=== PATIENT | female | born 1950 | race Caucasian/White ===

== ENCOUNTER 2018-11-15 08:27 | Observation (INO) | payer OTHER, MEDICARE ==
[2018-11-15 09:21] LABS: ADD MAN DIFF? NO
[2018-11-15 09:22] LABS: WHITE BLOOD COUNT 8.8 10^3/ul (4.8-10.8)
[2018-11-15 09:22] LABS: BASOPHILS % 0.5 % (0.0-2.0); EOSINOPHILS # 0.1 10^3/ul (0.0-0.5); EOSINOPHILS % 0.9 % (0.0-7.0); HEMATOCRIT 46.7 % (37.0-47.0); HEMOGLOBIN 14.4 g/dl (12.0-16.0); LYMPHOCYTES # 1.2 10^3/ul (0.8-2.9); LYMPHOCYTES % 13.6 % (15.0-51.0); MEAN CORPUSCULAR HGB CONC 30.8 g/dl (32.0-37.0); MEAN PLATELET VOLUME 8.9 fl (7.4-10.4); MONOCYTE # 0.6 10^3/ul (0.3-0.9); MONOCYTES % 7.2 % (0.0-11.0); NEUTROPHIL # 6.8 10^3/ul (1.6-7.5); NEUTROPHILS % 77.5 % (39.0-77.0); PLATELET COUNT 239 10^3/UL (140-415); RED BLOOD COUNT 5.99 10^6/ul (4.20-5.40); RED CELL DISTRIBUTION WIDTH 15.8 % (11.5-14.5)
[2018-11-15] MEDS: morphine 4 MG/ML VIAL IV (09:32)
[2018-11-15] MEDS: ONDANSETRON 4 MG INJ IV (09:33)
[2018-11-15] MEDS: ASPIRIN 81 MG TAB PO (09:33)
[2018-11-15 09:42] LABS: INR 0.94; PARTIAL THROMBOPLASTIN TIME 28.7 Sec (23.0-35.0); PROTIME 12.7 Sec (11.9-14.9)
[2018-11-15 09:44] LABS: ANION GAP 6 (5-13); BLOOD UREA NITROGEN 19 mg/dl (7-20); CALCIUM 9.2 mg/dl (8.4-10.2); CARBON DIOXIDE 29 mmol/L (21-31); CHLORIDE 105 mmol/L (97-110); CREATININE 0.67 mg/dl (0.44-1.00); Estimated GFR > 60 mL/min (>60); GLUCOSE 136 mg/dl (70-220); POTASSIUM 3.9 mmol/L (3.5-5.1); SODIUM 140 mmol/L (135-144)
[2018-11-15] MEDS: LORAZEPAM 2 MG INJ IV (09:55)
[2018-11-15 09:56] LABS: TROPONIN-I < 0.012 ng/ml (0.000-0.120)
[2018-11-15] MEDS: HYDROmorphONE 2 MG/ML SYG IV (10:31)
[2018-11-15 10:55] LABS: ALANINE AMINOTRANSFERASE 21 IU/L (13-69); ALBUMIN 3.9 g/dl (3.3-4.9); ALKALINE PHOSPHATASE 128 IU/L (42-121); ASPARTATE AMINO TRANSFERASE 22 IU/L (15-46); BILIRUBIN,INDIRECT 0.4 mg/dl (0-1.1); BILIRUBIN,TOTAL 0.4 mg/dl (0.2-1.3); LIPASE 67 U/L (23-300); TOTAL PROTEIN 7.5 g/dl (6.1-8.1)
[2018-11-15] MEDS ORDERED: ONDANSETRON 4 MG INJ IV ×2 (11:00→12:00)
[2018-11-15] MEDS ORDERED: ACETAMINOPHEN 325 MG TAB PO (11:00)
[2018-11-15] MEDS ORDERED: NACL 0.9% 3 ML SYG IV (12:00)
[2018-11-15] MEDS ORDERED: ENOXAPARIN 40 MG/0.4 ML SYG SC (12:00)
[2018-11-15] MEDS ORDERED: DOCUSATE SODIUM 100 MG CAP PO (12:00)
[2018-11-15 12:45] LABS: CREATINE KINASE 47 IU/L (23-200)
[2018-11-15 12:59] LABS: CK INDEX 1.4; CK-MB 0.67 ng/ml (0.0-2.4); TROPONIN-I < 0.012 ng/ml (0.000-0.120)
[2018-11-15] MEDS: ALBUTEROL HFA 8 GM INHALER INH ×2 (13:00→17:00)
[2018-11-15 13:13] LABS: B-TYPE NATRIURETIC PEPTIDE 1140 PG/ML (0-125)
[2018-11-15] MEDS: MELOXICAM 15 MG TAB PO (14:02)
[2018-11-15] MEDS: METOPROLOL (XL) 50 MG TAB PO (14:02)
[2018-11-15] MEDS: PANTOPRAZOLE (EC) 40 MG TAB PO (14:02)
[2018-11-15] MEDS: FUROSEMIDE 20 MG INJ IV (14:03)
[2018-11-15] MEDS: RIVAROXABAN 20 MG TABLET PO (18:19)
[2018-11-15 18:23] LABS: CREATINE KINASE 44 IU/L (23-200)
[2018-11-15 18:36] LABS: CK-MB 0.88 ng/ml (0.0-2.4); TROPONIN-I < 0.012 ng/ml (0.000-0.120)
[2018-11-15] MEDS: MONTELUKAST 10 MG TAB PO (21:32)
[2018-11-16] MEDS: ALBUTEROL HFA 8 GM INHALER INH ×7 (01:00→21:36)
[2018-11-16] MEDS: ACETAMINOPHEN 325 MG TAB PO (04:11)
[2018-11-16] MEDS: FUROSEMIDE 40 MG TAB PO (05:28)
[2018-11-16] MEDS: PANTOPRAZOLE (EC) 40 MG TAB PO (05:31)
[2018-11-16 07:11] LABS: HEMOGLOBIN A1C 6.4 % (0-5.9)
[2018-11-16] MEDS: MELOXICAM 15 MG TAB PO (08:08)
[2018-11-16] MEDS: METOPROLOL (XL) 50 MG TAB PO (08:08)
[2018-11-16] MEDS ORDERED: FUROSEMIDE 20 MG TAB PO (09:00)
[2018-11-16] MEDS: FUROSEMIDE 40 MG INJ IV (13:36)
[2018-11-16] MEDS: RIVAROXABAN 20 MG TABLET PO (17:07)
[2018-11-16] MEDS: MONTELUKAST 10 MG TAB PO (21:37)
[2018-11-17] MEDS: ALBUTEROL HFA 8 GM INHALER INH ×4 (01:04→14:05)
[2018-11-17] MEDS: FUROSEMIDE 40 MG TAB PO (05:49)
[2018-11-17] MEDS: PANTOPRAZOLE (EC) 40 MG TAB PO (05:49)
[2018-11-17 06:20] LABS: ADD MAN DIFF? NO
[2018-11-17 06:23] LABS: WHITE BLOOD COUNT 7.5 10^3/ul (4.8-10.8)
[2018-11-17 06:23] LABS: BASOPHILS % 0.4 % (0.0-2.0); EOSINOPHILS # 0.1 10^3/ul (0.0-0.5); EOSINOPHILS % 1.7 % (0.0-7.0); HEMATOCRIT 48.2 % (37.0-47.0); HEMOGLOBIN 14.5 g/dl (12.0-16.0); LYMPHOCYTES # 1.3 10^3/ul (0.8-2.9); LYMPHOCYTES % 17.6 % (15.0-51.0); MEAN CORPUSCULAR HEMOGLOBIN 23.9 pg (29.0-33.0); MEAN CORPUSCULAR HGB CONC 30.1 g/dl (32.0-37.0); MEAN CORPUSCULAR VOLUME 79.4 fl (82.0-101.0); MEAN PLATELET VOLUME 8.9 fl (7.4-10.4); MONOCYTE # 0.8 10^3/ul (0.3-0.9); MONOCYTES % 10.1 % (0.0-11.0); NEUTROPHIL # 5.2 10^3/ul (1.6-7.5); NEUTROPHILS % 69.9 % (39.0-77.0); PLATELET COUNT 229 10^3/UL (140-415); RED BLOOD COUNT 6.07 10^6/ul (4.20-5.40); RED CELL DISTRIBUTION WIDTH 16.1 % (11.5-14.5)
[2018-11-17 07:03] LABS: B-TYPE NATRIURETIC PEPTIDE 582 PG/ML (0-125)
[2018-11-17 07:07] LABS: MAGNESIUM 1.7 mg/dl (1.7-2.5)
[2018-11-17 07:14] LABS: ANION GAP 10 (5-13); BLOOD UREA NITROGEN 27 mg/dl (7-20); CALCIUM 8.9 mg/dl (8.4-10.2); CARBON DIOXIDE 29 mmol/L (21-31); CHLORIDE 100 mmol/L (97-110); CREATININE 0.71 mg/dl (0.44-1.00); Estimated GFR > 60 mL/min (>60); GLUCOSE 119 mg/dl (70-220); POTASSIUM 3.5 mmol/L (3.5-5.1); SODIUM 139 mmol/L (135-144)
[2018-11-17] MEDS: MELOXICAM 15 MG TAB PO (08:06)
[2018-11-17] MEDS: METOPROLOL (XL) 50 MG TAB PO (08:07)
[2018-11-17] MEDS ORDERED: METOPROLOL 25 MG TAB PO (21:00)
== END 2018-11-17 15:35 | disposition home or self-care (01) ==
LOC: E/R 08:27 → 6WM 10:43
DX: I48.2 Chronic atrial fibrillation (principal); I50.9 Heart failure, unspecified; I27.20 Pulmonary hypertension, unspecified; E66.01 Morbid (severe) obesity due to excess calories; R07.9 Chest pain, unspecified; Z68.43 Body mass index [BMI] 50.0-59.9, adult
CPT/HCPCS: 36415; 71045; 71046; 80048; 80076; 82550; 82553; 83036; 83690; 83735; 83880; 84484; 85025; 85610; 85730; 90686; 93005; 93306; 96374; 96375; 96376; 97161; 99285-25; G0378

== ENCOUNTER 2018-11-21 17:07 | Emergency (ER) | payer OTHER ==
[2018-11-21] MEDS ORDERED: ENALAPRILAT 1.25 MG INJ IV (21:00)
[2018-11-21 21:20] LABS: ADD MAN DIFF? NO
[2018-11-21 21:23] LABS: BASOPHILS % 0.3 % (0.0-2.0); EOSINOPHILS # 0.1 10^3/ul (0.0-0.5); EOSINOPHILS % 0.9 % (0.0-7.0); HEMATOCRIT 50.9 % (37.0-47.0); HEMOGLOBIN 15.6 g/dl (12.0-16.0); LYMPHOCYTES # 1.6 10^3/ul (0.8-2.9); LYMPHOCYTES % 18.4 % (15.0-51.0); MEAN CORPUSCULAR HEMOGLOBIN 24.2 pg (29.0-33.0); MEAN CORPUSCULAR HGB CONC 30.6 g/dl (32.0-37.0); MEAN CORPUSCULAR VOLUME 78.9 fl (82.0-101.0); MEAN PLATELET VOLUME 8.9 fl (7.4-10.4); MONOCYTE # 0.7 10^3/ul (0.3-0.9); MONOCYTES % 8.2 % (0.0-11.0); NEUTROPHIL # 6.2 10^3/ul (1.6-7.5); PLATELET COUNT 256 10^3/UL (140-415); RED BLOOD COUNT 6.45 10^6/ul (4.20-5.40); RED CELL DISTRIBUTION WIDTH 17.3 % (11.5-14.5)
[2018-11-21 21:23] LABS: WHITE BLOOD COUNT 8.6 10^3/ul (4.8-10.8)
[2018-11-21 21:46] LABS: ALANINE AMINOTRANSFERASE 28 IU/L (13-69); ALBUMIN/GLOBULIN RATIO 1.08; ALKALINE PHOSPHATASE 133 IU/L (42-121); ANION GAP 6 (5-13); ASPARTATE AMINO TRANSFERASE 30 IU/L (15-46); BILIRUBIN,INDIRECT 0.2 mg/dl (0-1.1); BILIRUBIN,TOTAL 0.2 mg/dl (0.2-1.3); BLOOD UREA NITROGEN 23 mg/dl (7-20); CALCIUM 9.7 mg/dl (8.4-10.2); CARBON DIOXIDE 29 mmol/L (21-31); CHLORIDE 106 mmol/L (97-110); CREATININE 0.81 mg/dl (0.44-1.00); Estimated GFR > 60 mL/min (>60); GLUCOSE 112 mg/dl (70-220); LIPASE 102 U/L (23-300); POTASSIUM 4.3 mmol/L (3.5-5.1); SODIUM 141 mmol/L (135-144); TOTAL PROTEIN 7.7 g/dl (6.1-8.1)
[2018-11-21 21:55] LABS: B-TYPE NATRIURETIC PEPTIDE 1040 PG/ML (0-125)
[2018-11-21 21:59] LABS: TROPONIN-I < 0.012 ng/ml (0.000-0.120)
[2018-11-21] MEDS: ASPIRIN 81 MG TAB PO (22:15)
[2018-11-21] MEDS: FUROSEMIDE 40 MG INJ IV (22:15)
[2018-11-21] MEDS: ENALAPRILAT 2.5 MG INJ IV (23:04)
== END 2018-11-21 23:41 | disposition home or self-care (01) ==
LOC: E/R 23:41
DX: I10 Essential (primary) hypertension (principal); I50.31 Acute diastolic (congestive) heart failure; G44.209 Tension-type headache, unspecified, not intractable; E66.01 Morbid (severe) obesity due to excess calories; J44.9 Chronic obstructive pulmonary disease, unspecified; Z85.41 Personal history of malignant neoplasm of cervix uteri
CPT/HCPCS: 70450; 71045; 80053; 83690; 83880; 84484; 85025; 93005; 96374; 96375; 99285-25

== ENCOUNTER 2019-06-08 19:23 | Inpatient (IN) | payer OTHER ==
[2019-06-08] MEDS: NITROGLYCERIN 2% 1 GM OINT PKT TD (19:46)
[2019-06-08] MEDS: ASPIRIN 81 MG TAB PO (19:46)
[2019-06-08 19:55] LABS: ADD MAN DIFF? NO
[2019-06-08 19:58] LABS: BASOPHILS % 0.5 % (0.0-2.0); EOSINOPHILS # 0.1 10^3/ul (0.0-0.5); EOSINOPHILS % 1.1 % (0.0-7.0); HEMATOCRIT 50.9 % (37.0-47.0); HEMOGLOBIN 16.1 g/dl (12.0-16.0); LYMPHOCYTES # 1.3 10^3/ul (0.8-2.9); LYMPHOCYTES % 16.3 % (15.0-51.0); MEAN CORPUSCULAR HEMOGLOBIN 27.2 pg (29.0-33.0); MEAN CORPUSCULAR HGB CONC 31.6 g/dl (32.0-37.0); MEAN CORPUSCULAR VOLUME 85.8 fl (82.0-101.0); MONOCYTE # 0.7 10^3/ul (0.3-0.9); NEUTROPHIL # 5.8 10^3/ul (1.6-7.5); NEUTROPHILS % 72.7 % (39.0-77.0); PLATELET COUNT 208 10^3/UL (140-415); RED BLOOD COUNT 5.93 10^6/ul (4.20-5.40); RED CELL DISTRIBUTION WIDTH 15.5 % (11.5-14.5)
[2019-06-08] MEDS ORDERED: NITROGLYCERIN (SL) 0.4 MG TAB SL (20:00)
[2019-06-08 20:22] LABS: ANION GAP 9 (5-13); BLOOD UREA NITROGEN 22 mg/dl (7-20); CALCIUM 9.5 mg/dl (8.4-10.2); CARBON DIOXIDE 28 mmol/L (21-31); CHLORIDE 102 mmol/L (97-110); CREATININE 0.67 mg/dl (0.44-1.00); Estimated GFR > 60 mL/min (>60); GLUCOSE 108 mg/dl (70-220); POTASSIUM 3.6 mmol/L (3.5-5.1); SODIUM 139 mmol/L (135-144)
[2019-06-08 20:33] LABS: TROPONIN-I < 0.012 ng/ml (0.000-0.120)
[2019-06-08] MEDS ORDERED: ONDANSETRON 4 MG INJ IV ×2 (21:00→21:30)
[2019-06-08] MEDS ORDERED: ACETAMINOPHEN 325 MG TAB PO (21:00)
[2019-06-08] MEDS: LABETALOL HCL 20MG INJ IV (21:06)
[2019-06-08] MEDS ORDERED: NACL 0.9% 3 ML SYG IV (21:30)
[2019-06-08] MEDS ORDERED: NAPROXEN 500 MG TAB PO (21:30)
[2019-06-08] MEDS ORDERED: morphine 2 MG INJ IV (21:30)
[2019-06-08] MEDS: ALBUTEROL 18 GM INHALER INH (21:30)
[2019-06-08] MEDS: FUROSEMIDE 40 MG INJ IV (23:33)
[2019-06-08] MEDS: ACETAMINOPHEN 325 MG TAB PO (23:33)
[2019-06-09] MEDS: ALBUTEROL 18 GM INHALER INH ×6 (01:00→20:57)
[2019-06-09 02:04] LABS: CREATINE KINASE 39 IU/L (23-200)
[2019-06-09 02:14] LABS: CK INDEX 1.6; CK-MB 0.62 ng/ml (0.0-2.4)
[2019-06-09 02:18] LABS: TROPONIN-I < 0.012 ng/ml (0.000-0.120)
[2019-06-09] MEDS: PANTOPRAZOLE (EC) 40 MG TAB PO (06:08)
[2019-06-09] MEDS: FUROSEMIDE 40 MG INJ IV ×2 (06:12→17:44)
[2019-06-09 07:06] LABS: ADD MAN DIFF? NO
[2019-06-09 07:08] LABS: BASOPHILS % 0.5 % (0.0-2.0); EOSINOPHILS # 0.1 10^3/ul (0.0-0.5); EOSINOPHILS % 1.7 % (0.0-7.0); HEMATOCRIT 46.4 % (37.0-47.0); HEMOGLOBIN 14.5 g/dl (12.0-16.0); LYMPHOCYTES # 1.1 10^3/ul (0.8-2.9); LYMPHOCYTES % 17.3 % (15.0-51.0); MEAN CORPUSCULAR HEMOGLOBIN 27.1 pg (29.0-33.0); MEAN CORPUSCULAR HGB CONC 31.3 g/dl (32.0-37.0); MEAN CORPUSCULAR VOLUME 86.6 fl (82.0-101.0); MEAN PLATELET VOLUME 9.6 fl (7.4-10.4); MONOCYTE # 0.7 10^3/ul (0.3-0.9); MONOCYTES % 10.6 % (0.0-11.0); NEUTROPHIL # 4.4 10^3/ul (1.6-7.5); NEUTROPHILS % 69.4 % (39.0-77.0); PLATELET COUNT 189 10^3/UL (140-415); RED BLOOD COUNT 5.36 10^6/ul (4.20-5.40); RED CELL DISTRIBUTION WIDTH 15.9 % (11.5-14.5)
[2019-06-09 07:08] LABS: WHITE BLOOD COUNT 6.3 10^3/ul (4.8-10.8)
[2019-06-09 07:18] LABS: HEMOGLOBIN A1C 6.2 % (0-5.9)
[2019-06-09 07:30] LABS: ALANINE AMINOTRANSFERASE 29 IU/L (13-69); ALBUMIN/GLOBULIN RATIO 1.07; ALKALINE PHOSPHATASE 109 IU/L (42-121); ANION GAP 4 (5-13); ASPARTATE AMINO TRANSFERASE 21 IU/L (15-46); BILIRUBIN,INDIRECT 0.9 mg/dl (0-1.1); BILIRUBIN,TOTAL 0.9 mg/dl (0.2-1.3); BLOOD UREA NITROGEN 24 mg/dl (7-20); CARBON DIOXIDE 35 mmol/L (21-31); CHLORIDE 102 mmol/L (97-110); CHOL/HDL RATIO 2.7 RATIO; CHOLESTEROL 92 mg/dl (100-200); Estimated GFR > 60 mL/min (>60); GLUCOSE 112 mg/dl (70-220); HDL CHOLESTEROL 33 mg/dl (33-92); LDL CHOLESTEROL,CALCULATED 39 mg/dl; MAGNESIUM 1.6 mg/dl (1.7-2.5); PHOSPHORUS 4.4 mg/dl (2.5-4.9); POTASSIUM 3.9 mmol/L (3.5-5.1); SODIUM 141 mmol/L (135-144); TOTAL PROTEIN 5.8 g/dl (6.1-8.1); TRIGLYCERIDES 98 mg/dl (0-149)
[2019-06-09 07:31] LABS: CREATINE KINASE 36 IU/L (23-200)
[2019-06-09 07:42] LABS: CK INDEX 1.6; CK-MB 0.57 ng/ml (0.0-2.4); TROPONIN-I < 0.012 ng/ml (0.000-0.120)
[2019-06-09] MEDS: ACETAMINOPHEN 325 MG TAB PO (08:20)
[2019-06-09] MEDS: METOPROLOL 25 MG TAB PO (08:21)
[2019-06-09] MEDS ORDERED: FUROSEMIDE 20 MG TAB PO (09:00)
[2019-06-09] MEDS ORDERED: ENOXAPARIN 40 MG/0.4 ML SYG SC (09:00)
[2019-06-09] MEDS: MAGNESIUM SULFATE 2 GM/50 ML 50 ML IVPB (10:46)
[2019-06-09] MEDS: METOPROLOL 50 MG TAB PO ×2 (14:00→22:55)
[2019-06-09] MEDS: RIVAROXABAN 20 MG TABLET PO (17:44)
[2019-06-09] MEDS: ATORVASTATIN 20 MG TAB PO (20:41)
[2019-06-09] MEDS: MONTELUKAST 10 MG TAB PO (20:41)
[2019-06-10] MEDS: ACETAMINOPHEN 325 MG TAB PO ×2 (00:09→06:37)
[2019-06-10] MEDS: ALBUTEROL 18 GM INHALER INH ×2 (01:00→05:00)
[2019-06-10] MEDS: METOPROLOL 50 MG TAB PO ×2 (05:20→14:58)
[2019-06-10] MEDS: PANTOPRAZOLE (EC) 40 MG TAB PO (06:30)
[2019-06-10] MEDS: FUROSEMIDE 40 MG INJ IV (06:31)
[2019-06-10 07:09] LABS: IRON 72 ug/dl (35-150)
[2019-06-10 07:17] LABS: ALANINE AMINOTRANSFERASE 31 IU/L (13-69); ALBUMIN 3.5 g/dl (3.3-4.9); ALBUMIN/GLOBULIN RATIO 1.09; ALKALINE PHOSPHATASE 114 IU/L (42-121); ANION GAP 7 (5-13); ASPARTATE AMINO TRANSFERASE 27 IU/L (15-46); BILIRUBIN,INDIRECT 0.8 mg/dl (0-1.1); BILIRUBIN,TOTAL 0.8 mg/dl (0.2-1.3); BLOOD UREA NITROGEN 26 mg/dl (7-20); CARBON DIOXIDE 33 mmol/L (21-31); CHLORIDE 99 mmol/L (97-110); CREATININE 0.78 mg/dl (0.44-1.00); Estimated GFR > 60 mL/min (>60); GLUCOSE 113 mg/dl (70-220); MAGNESIUM 1.8 mg/dl (1.7-2.5); POTASSIUM 3.2 mmol/L (3.5-5.1); SODIUM 139 mmol/L (135-144); TOTAL PROTEIN 6.7 g/dl (6.1-8.1)
[2019-06-10 07:18] LABS: % IRON SATURATION 19 % SAT (22-52); TOTAL IRON BINDING CAPACITY 373 ug/dl (241-421)
[2019-06-10 07:20] LABS: B-TYPE NATRIURETIC PEPTIDE 885 PG/ML (0-125)
[2019-06-10] MEDS: POTASSIUM CHLORIDE (SR) 20 MEQ TAB PO (13:55)
[2019-06-10] MEDS: MAGNESIUM SULFATE 1 GM/D5W 100 ML IVPB (13:55)
== END 2019-06-10 19:23 | disposition home health service (06) | DRG 291 ==
LOC: E/R 19:23 → TEL 20:51
PROC: 3E0F7GC Introduction of Other Therapeutic Substance into Respiratory Tract, Via Natural or Artificial Opening (ICD-10-PCS; principal; 2019-06-08)
DX: I11.0 Hypertensive heart disease with heart failure (principal); I50.31 Acute diastolic (congestive) heart failure; J96.21 Acute and chronic respiratory failure with hypoxia; Z68.43 Body mass index [BMI] 50.0-59.9, adult; E66.01 Morbid (severe) obesity due to excess calories; E83.42 Hypomagnesemia; D75.1 Secondary polycythemia; I48.2 Chronic atrial fibrillation; J44.9 Chronic obstructive pulmonary disease, unspecified; Z99.81 Dependence on supplemental oxygen; I16.0 Hypertensive urgency; I10 Essential (primary) hypertension; E78.5 Hyperlipidemia, unspecified; R07.9 Chest pain, unspecified; Z85.42 Personal history of malignant neoplasm of other parts of uterus; Z90.49 Acquired absence of other specified parts of digestive tract; Z79.02 Long term (current) use of antithrombotics/antiplatelets; Z91.19 Patient's noncompliance with other medical treatment and regimen
CPT/HCPCS: 36415; 71045; 80048; 80053; 80061; 82550; 82553; 83036; 83540; 83735; 83880; 84100; 84443; 84484; 85025; 93005; 93306; 99217; 99285-25